=== PATIENT | male | born 1945 | race American Indian/Alaskan Native ===

== ENCOUNTER 2019-03-30 10:32 | Inpatient (IN) | payer OTHER ==
[~2019-03-30] VITALS: Ht 175.3 cm; Wt 100.2 kg
[~2019-03-30 10:32] MED LIST: ASPIR 8181 MG PO; DIABETES MEDICATION; HYDROCODON-ACE1 EAC7 PO; NEURONTIN 400400 M1 PO; NORCO 5-325 TA1 EACH PO
[2019-03-30 10:33] VITALS: BP 123/76; BP 133/89
[2019-03-30] MEDS ORDERED: AMITRIPTYLINE H50 M2 PO (10:44)
[2019-03-30] MEDS ORDERED: ARICEPT10 M1 PO (10:44)
[2019-03-30] MEDS ORDERED: VITAMIN D35000 UNI2 PO (10:45)
[2019-03-30] MEDS ORDERED: VITAMIN B-121000 MC2 PO (10:45)
[2019-03-30] MEDS ORDERED: FOLIC ACID1 MG PO (10:45)
[2019-03-30] MEDS ORDERED: COZAAR 25 MG TA25 M1 PO (10:46)
[2019-03-30] MEDS ORDERED: METFORMIN HCL500 M3 PO (10:46)
[2019-03-30] MEDS ORDERED: LIDOCAINE5 GM TOP (10:46)
[2019-03-30] MEDS ORDERED: NAMENDA 10 MG T10 MG PO (10:47)
[2019-03-30] MEDS ORDERED: MUCUS ER600 MG PO (10:47)
[2019-03-30] MEDS ORDERED: LYRICA200 MG PO (10:48)
[2019-03-30] MEDS ORDERED: SERTRALINE HCL100 MG PO (10:48)
[2019-03-30 11:43] LABS: ABSOLUTE NEUTROPHILS 15.4 thou/uL (1.4-8.2); BASOPHILS 0.4 % (0.0-2.0); EOSINOPHILS 0.3 % (0.0-3.0); HEMOGLOBIN 15.9 gm/dL (14.0-18.0); LYMPHOCYTES 2.1 % (24.0-44.0); MCH 29.1 pg (26.0-34.0); MCHC 33.2 g/dL (28.0-37.0); MCV 87.5 fL (80.0-100.0); MONOCYTES 8.4 % (1.0-8.0); POLYS 88.8 % (36.0-66.0); RBC 5.49 mil/uL (4.50-6.00); RDW 13.5 % (10.5-14.5); WBC 17.4 thou/uL (4.0-11.0)
[2019-03-30 11:54] LABS: ANION GAP 8 mmol/L (7-16); BUN 12 mg/dL (7-18); CALCIUM 9.8 mg/dL (8.5-10.1); CHLORIDE 98 mmol/L (98-107); CO2 28 mmol/L (21-32); CREATININE 1.1 mg/dL (0.7-1.3); GLUCOSE 185 mg/dL (74-106); POTASSIUM 4.1 mmol/L (3.5-5.1); SODIUM 134 mmol/L (136-145)
[2019-03-30 11:58] LABS: APTT 32.4 Seconds (24.5-32.8); PROTIME 10.2 Seconds (9.3-11.4)
[2019-03-30 12:03] LABS: ALBUMIN 3.5 g/dL (3.4-5.0); SGOT 16 U/L (15-37); SGPT 15 U/L (30-65); TOTAL BILIRUBIN 0.8 mg/dL (<0.1-1.0); TOTAL PROTEIN 7.6 g/dL (6.4-8.2); TROPONIN-I <0.06 ng/mL (<0.06)
[2019-03-30 12:16] LABS: PLATELET COUNT 212 thou/uL (150-400); PLATELET ESTIMATE NORMAL
[2019-03-30 12:18] LABS: URINE BILIRUBIN NEGATIVE (Negative); URINE BLOOD NEGATIVE (Negative); URINE CLARITY CLEAR; URINE COLOR YELLOW; URINE GLUCOSE-RANDOM* NEGATIVE (Negative); URINE KETONES NEGATIVE (Negative); URINE LEUKOCYTES-REFLEX NEGATIVE (Negative); URINE NITRITE-REFLEX NEGATIVE (Negative); URINE PROTEIN (DIPSTICK) NEGATIVE (Negative); URINE SPECIFIC GRAVITY 1.015 (1.005-1.035)
[2019-03-30 13:56] VITALS: BP 140/79
[2019-03-30 15:15] VITALS: BP 142/76
[2019-03-30 15:30] LABS: HEMATOCRIT 41.6 % (42.0-52.0); HEMOGLOBIN 13.8 gm/dL (14.0-18.0); MCH 28.6 pg (26.0-34.0); MCHC 33.2 g/dL (28.0-37.0); MCV 86.2 fL (80.0-100.0); RBC 4.83 mil/uL (4.50-6.00); RDW 13.3 % (10.5-14.5); WBC 18.5 thou/uL (4.0-11.0)
[2019-03-30 15:44] LABS: INR 1.1; PROTIME 10.8 Seconds (9.3-11.4)
[2019-03-30 15:45] LABS: CHOLESTEROL 152 mg/dL (<200); HDL CHOLESTEROL 45 mg/dL (>40); LDL CHOLESTEROL 92 mg/dL (<100); TC:HDL 3.4 Ratio (Not establshd); TRIGLYCERIDE 79 mg/dL (<150); VLDL 16 mg/dL (<40)
[2019-03-30 16:11] LABS: TSH 0.825 uIU/mL (0.358-3.740)
[2019-03-30 16:30] VITALS: BP 172/77
--- NOTE | 2019-03-30 16:39 | EKG ---
[facility] [place] [address] ELECTROCARDIOGRAM REPORT Name: MARIA M HAHN Room #: 215-P ADM IN M.R.#: [id number] Admission: 03/30/19 Attend Phys: Alec Box MD Discharge: Date of : 47 Report #: [id number] THIS REPORT FOR: cc: [facility] - Clinic physician unknown [facility] - Clinic physician unknown Jack Vickers MD [facility] THIS REPORT FOR: //name// [facility] ED Test Date: 2019-03-30 Test Time: 10:54:36 Pat Name: MARIA M HAHN Department: Room: [facility] Gender: M Storeperson: KAMLA : 1945 Requested By: Yanelis Parker Order Number: [id number] MD: Jack Vickers Measurements Intervals [place] Rate: 130 P: 0 [place]: 156 QRS: 177 QRSD: 125 T: -8 QT: 318 QTc: 468 Interpretive Statements Sinus tachycardia Atrial premature complex RBBB and LPFB Inferior infarct, old Low-voltage No previous ECG available for comparison Electronically Signed On 03-30-2019 16:38:15 FINANCE AND ADMINISTRATION MANAGER by Jack Vickers [email or web address] <ELECTRONICALLY SIGNED> By: Jack Vickers MD, [facility] 03/30/19 1638 1054 1054 Jack Vickers MD, [facility] /EPI
--- NOTE | 2019-03-30 18:32 | EEG ---
[facility] [place] [address] ELECTROENCEPHALOGRAM Name: MARIA M HAHN Room #: 215-P [facility] IN M.R.#: [id number] Admission: 03/30/19 Attend Phys: Alec Box MD Discharge: Date of : 47 Report #: [id number] THIS REPORT FOR: //name// CC: FAM unknown Alec Box DATE OF SERVICE: 03/30/2019 This patient is being evaluated for altered mental status. EEG was done by placing the electrode by standard 10-20 system of electrode placement. Both referential and sequential montages were used for recording. Background activity in this patient is disorganized and poorly formed. It goes up to about 7 Hz and 30 microvolt. Photic stimulation is unremarkable. The patient became drowsy and that is associated with bilateral slowing. Throughout the record, no active epileptiform activity was noticed. IMPRESSION: This patient's EEG is disorganized and poorly formed. That is a nonspecific abnormality, which can occur with encephalopathy, effect of psychotropic medication, dementia, etc. Clinical correlation is recommended. <ELECTRONICALLY SIGNED> By: Lalo Gusman MD 03/30/191831 20 29 Lalo Gusman MD /nt
[2019-03-30 20:49] VITALS: BP 121/66
[2019-03-31 00:01] VITALS: BP 133/73
[2019-03-31 03:09] LABS: GLYCOHEMOGLOBIN (HGB A1C) 6.1 % (4.8-5.6)
[2019-03-31 03:27] VITALS: BP 143/85
[2019-03-31 05:32] LABS: CALCIUM 9.3 mg/dL (8.5-10.1); CREATININE 1.1 mg/dL (0.7-1.3); MAGNESIUM 1.7 mg/dL (1.8-2.4); POTASSIUM 3.6 mmol/L (3.5-5.1)
[2019-03-31 05:38] LABS: ABSOLUTE NEUTROPHILS 14.9 thou/uL (1.4-8.2); BASOPHILS 0.1 % (0.0-2.0); HEMATOCRIT 44.7 % (42.0-52.0); HEMOGLOBIN 14.5 gm/dL (14.0-18.0); LYMPHOCYTES 2.8 % (24.0-44.0); MCH 28.4 pg (26.0-34.0); MCHC 32.5 g/dL (28.0-37.0); MCV 87.6 fL (80.0-100.0); MONOCYTES 1.9 % (1.0-8.0); PLATELET COUNT 189 thou/uL (150-400); POLYS 95.2 % (36.0-66.0); RDW 13.6 % (10.5-14.5); WBC 15.7 thou/uL (4.0-11.0)
--- NOTE | 2019-03-31 08:14 | EKG ---
[facility] [place] [address] ELECTROCARDIOGRAM REPORT Name: MARIA M HAHN Room #: 215-P ADM IN M.R.#: [id number] Admission: 03/30/19 Attend Phys: Alec Box MD Discharge: Date of : 47 Report #: [id number] THIS REPORT FOR: cc: [facility] - Clinic physician unknown [facility] - Clinic physician unknown Jack Vickers MD [facility] ~ THIS REPORT FOR: //name// [facility] ED Test Date: 2019-03-30 Test Time: 12:06:36 Pat Name: MARIA M HAHN Department: Room: [facility] Gender: M Wire Strander: KAMLA : 1945 Requested By: Order Number: [id number] MD: Jack Vickers Measurements Intervals [place] Rate: 118 P: 77 [place]: 160 QRS: 139 QRSD: 123 T: -18 QT: 350 QTc: 491 Interpretive Statements Sinus tachycardia RBBB and LPFB Inferior infarct, old No previous ECG available for comparison Electronically Signed On 03-31-2019 8:13:38 DIRECTOR OF SALES SUPPORT by Jack Vickers [email or web address] <ELECTRONICALLY SIGNED> By: Jack Vickers MD, FAC 03/31/19 0813 1206 1206 Jack Vickers MD, [facility] /EPI
[2019-03-31 08:42] VITALS: BP 119/78
[2019-03-31 11:00] VITALS: BP 115/69
[2019-03-31 16:00] VITALS: BP 124/86
[2019-03-31 20:30] VITALS: BP 126/83
[2019-04-01 04:30] VITALS: BP 122/82
[2019-04-01 07:30] VITALS: BP 110/68
[2019-04-01 11:40] VITALS: BP 93/61
[2019-04-01 11:43] LABS: HEMATOCRIT 41.1 % (42.0-52.0); HEMOGLOBIN 13.5 gm/dL (14.0-18.0); MCH 28.7 pg (26.0-34.0); MCHC 32.7 g/dL (28.0-37.0); MCV 87.6 fL (80.0-100.0); RBC 4.69 mil/uL (4.50-6.00); RDW 13.6 % (10.5-14.5); WBC 21.8 thou/uL (4.0-11.0)
[2019-04-01 11:44] LABS: CALCIUM 8.6 mg/dL (8.5-10.1); CREATININE 1.2 mg/dL (0.7-1.3); MAGNESIUM 1.9 mg/dL (1.8-2.4)
[2019-04-01 16:50] VITALS: BP 113/75
[2019-04-01 20:15] VITALS: BP 117/71
[2019-04-02 04:18] LABS: CALCIUM 8.3 mg/dL (8.5-10.1); CREATININE 0.9 mg/dL (0.7-1.3); MAGNESIUM 2.2 mg/dL (1.8-2.4); POTASSIUM 3.3 mmol/L (3.5-5.1)
[2019-04-02 04:24] LABS: HEMATOCRIT 39.9 % (42.0-52.0); HEMOGLOBIN 12.9 gm/dL (14.0-18.0); MCH 28.4 pg (26.0-34.0); MCHC 32.3 g/dL (28.0-37.0); MCV 88.1 fL (80.0-100.0); RBC 4.53 mil/uL (4.50-6.00); RDW 13.2 % (10.5-14.5)
[2019-04-02 04:55] VITALS: BP 130/85
[2019-04-02 08:30] VITALS: BP 137/79
--- NOTE | 2019-04-02 10:35 | HC ---
[facility] [place] [address] CONSULTATION Name: MARIA M HAHN Room #: 215-P [facility] IN .R.#: [id number] Admission: 03/30/19 Attend Phys: Alec Box MD Discharge: Date of : 47 Report #: [id number] THIS REPORT FOR: cc: [facility] - Clinic physician unknown [facility] - Clinic physician unknown Jhon Light MD ~ CC: [facility] unknown Alec Box DATE OF SERVICE: 04/01/2019 ENDOCRINE CONSULTATION NOTE CONSULTING PHYSICIAN: Dr. Box. REASON FOR CONSULTATION: Hyperglycemia, uncontrolled type 2 diabetes mellitus. HISTORY OF PRESENT ILLNESS: This is a 73-year-old male patient who presented to us on 03/30/2019 with complaints of aphasia and altered mental status. The patient's background is noted for hypertension, hyperlipidemia, diabetes mellitus as well as prior CVA in addition to likely dementia. The patient lives at a shelter and has been for the past year. The patient notes that he has had type 2 diabetes mellitus for no more than 2 years and that he is maintained on metformin monotherapy. The patient gets his blood glucose monitored routinely and indicates that most of the blood glucose values checked fall in the low 100 mg/dL range. The patient is not aware of diabetic complications including retinopathy, nephropathy or neuropathy. He is not aware of difficulties pertaining to coronary artery disease or other cardiovascular disease. The patient's background is also noted for hypertension for which he is treated with losartan 25 mg daily. Judging by the patient's medications, it seems that he also deals with an element of diabetic neuropathy for which he receives Lyrica 200 mg b.i.d. and amitriptyline 50 mg at bedtime. REVIEW OF SYSTEMS: CONSTITUTIONAL: Fatigue, tiredness, but not fever or chills or body weight changes. HEENT: Negative for sinus pain, congestion or ear drainage. PULMONARY: Occasional issues with shortness of breath and cough, but not hemoptysis. CARDIAC: Occasional dyspnea on exertion, leg edema, but not chest pain, palpitations, syncope or presyncope. [address] [address] CONSULTATION Name: MARIA M HAHN Room #: 215-P [facility] IN ..#: [id number] Admission: 03/30/19 Attend Phys: Alec Box MD Discharge: Date of : 47 Report #: [id number] GASTROINTESTINAL: Abdominal distention, abdominal discomfort, nausea, but no vomiting or significant changes in bowel movements. NEUROLOGY: Negative for loss of consciousness, seizure activity, frequent severe headaches. SKIN: Negative for rash, ulceration or other major changes, otherwise his review of systems is noncontributory unless mentioned in HPI. PAST MEDICAL HISTORY: 1. Type 2 diabetes mellitus. 2. Hypertension. 3. Prior cerebrovascular accident. 4. Dementia. 5. Possible peripheral diabetic neuropathy. OUTPATIENT MEDICATIONS: Include amitriptyline 50 mg at bedtime, Aricept 10 mg daily, vitamin D 1000 units daily, cyanocobalamin 500 mcg daily, folic acid 1 mg daily, losartan 50 mg daily, metformin ER 1 tab b.i.d., Namenda 10 mg b.i.d., Lyrica 200 mg b.i.d., sertraline 25 mg daily. ALLERGIES: DULOXETINE, METHOCARBAMOL. FAMILY HISTORY: Noncontributory. SOCIAL HISTORY: The patient resides at a shelter. He is an ex-smoker, quit more than 20 years ago. He has not had any alcohol in over a year. PHYSICAL EXAMINATION: GENERAL: Pleasant male patient who is not in apparent pain or distress. VITAL SIGNS: Blood pressure is 93/61 mmHg, heart rate is 109 beats per minute, respiration 18 per minute, temperature 36.7 degrees. CONSTITUTIONAL: The patient is sitting in his recliner, appears comfortable, not in apparent in distress. HEENT: Anicteric sclerae. Intact extraocular motions. NECK: Supple without JVD, carotid bruits or lymphadenopathy. I do not appreciate thyromegaly. CHEST: Noted for moderate air entry bilaterally with scattered rales and rhonchi. HEART: Regular rate and rhythm without murmurs or gallops. ABDOMEN: Distended, soft. No guarding. Active bowel sounds. EXTREMITIES: Lower extremity exam, trace ankle edema. Stasis dermatitis changes. NEUROLOGIC: Awake, alert and oriented to time, place and person. The remainder of his examination is grossly nonfocal. PSYCHIATRIC: Interactive, appropriate. Normal mood and affect. [address] [address] CONSULTATION Name: MARIA M HAHN Room #: 215-P [facility] IN M.R.#: [id number] Admission: 03/30/19 Attend Phys: Alec Box MD Discharge: Date of : 47 Report #: [id number] LABORATORY DATA: Blood glucose values during his hospital stay have ranged between 140-1189 mg/dL on his first day of stay and then remain inconsistently above 250 mg/dL to a high of 328 mg/dL over the past 24 hours. Sodium 138, potassium 4.0, chloride 104, CO2 of 22, anion gap 12, BUN 21, creatinine 1.2, AST 16, total bilirubin 0.8, calcium 8.6, magnesium 1.9, alkaline phosphatase 70, ALT 15, total protein 7.6, albumin 3.5, EGFR 60. Lactic acid 1.4. Troponin negative. Total cholesterol 152, triglycerides 79, HDL 45, LDL 92. INR 1.1. White blood count 21.8, hemoglobin 13.5, hematocrit 41.1, platelets 206. TSH 0.825. Hemoglobin A1c 6.1%. ASSESSMENT AND PLAN: 1. Type 2 diabetes mellitus. The patient reports a fairly good control of his glycemic levels as an outpatient, which is also marred by his measured hemoglobin A1c of 6.1%. However, he has demonstrated progressively worse and severe hyperglycemia since his admission likely in relation to his acute illness as well as the utilization of high dose intravenous Solu-Medrol therapy. I counseled the patient about these considerations and about the need to achieve and maintain adequate glycemic control while he receives the necessary therapy. That said, I will add Lantus insulin 14 units daily to his regimen, maintain the current low intensity Humalog supplemental scale and add linagliptin 5 mg daily. The patient has undergone a contrasted CT scan study on arrival, and as such we would be probably better off waiting until tomorrow to resume metformin therapy, which he seems to respond well to historically. In the meantime, we will maintain blood glucose monitoring before meals and at bedtime and adjust his therapy accordingly. 2. Hypertension. The patient's level of blood pressure control is adequate on the current losartan therapy, he is to continue with the same. 3. Diabetic neuropathy. The patient seems to be under adequate control with current gabapentin and amitriptyline regimen, he is to continue with the same. 4. Community-acquired pneumonia, respiratory failure. The patient is currently receiving therapy with vancomycin, Zosyn, Levaquin as well as Mucinex. He is also on high dose steroid therapy. 5. Dementia. Continue with the current Namenda and Aricept therapy. I have reviewed the patient's clinical care notes, laboratory data, radiologic study and other pertinent clinical information past and present for more than 35 minutes. I certainly appreciate this consultation by Dr. Box. <ELECTRONICALLY SIGNED> By: Jhon Light MD 04/02/19 1035 1540 2038 Jhon Light MD /nt
[2019-04-02 10:38] LABS: HEMATOCRIT 40.9 % (42.0-52.0); MCH 28.1 pg (26.0-34.0); MCHC 31.8 g/dL (28.0-37.0); MCV 88.3 fL (80.0-100.0); RBC 4.64 mil/uL (4.50-6.00); RDW 13.7 % (10.5-14.5); WBC 15.7 thou/uL (4.0-11.0)
[2019-04-02 12:15] VITALS: BP 119/64
[2019-04-02 16:45] VITALS: BP 124/78
[2019-04-02 20:15] VITALS: BP 124/87
[2019-04-03 04:45] VITALS: BP 143/89
[2019-04-03 07:40] VITALS: BP 151/85
[2019-04-03 08:39] LABS: CALCIUM 8.4 mg/dL (8.5-10.1); CREATININE 1.1 mg/dL (0.7-1.3); POTASSIUM 3.7 mmol/L (3.5-5.1)
[2019-04-03 11:30] VITALS: BP 139/88
[2019-04-03] MEDS ORDERED: TRADJENTA5 MG PO (12:33)
[2019-04-03] MEDS ORDERED: AUGMENTIN 875-1 EACH PO (12:34)
== END 2019-04-03 15:45 | DRG 871 ==
LOC: ER 10:32 → 2N 13:01 → EROBS 13:01 → 2N 15:39
PROVIDERS: Emergency Medicine Emergency Medical Services; Nurse Practitioner; ADMIT Internal Medicine
DX: A41.9 Sepsis, unspecified organism (principal); J96.01 Acute respiratory failure with hypoxia; J18.9 Pneumonia, unspecified organism; R47.01 Aphasia; G93.40 Encephalopathy, unspecified; F03.90 Unspecified dementia, unspecified severity, without behavioral disturbance, psychotic disturbance, mood disturbance, and anxiety; E11.40 Type 2 diabetes mellitus with diabetic neuropathy, unspecified; E11.22 Type 2 diabetes mellitus with diabetic chronic kidney disease; E11.319 Type 2 diabetes mellitus with unspecified diabetic retinopathy without macular edema; E11.65 Type 2 diabetes mellitus with hyperglycemia; I10 Essential (primary) hypertension; E78.5 Hyperlipidemia, unspecified; Z86.73 Personal history of transient ischemic attack (TIA), and cerebral infarction without residual deficits; Z88.8 Allergy status to other drugs, medicaments and biological substances; Z79.899 Other long term (current) drug therapy; Z79.84 Long term (current) use of oral hypoglycemic drugs; Z85.46 Personal history of malignant neoplasm of prostate; Z87.891 Personal history of nicotine dependence
CPT/HCPCS: 10081; 10194